=== PATIENT | male | born 1935 | race Hispanic/Latino ===

== ENCOUNTER → 2017-09-28 | Outpatient (CLI) | payer OTHER ==
[~2017-09-28] MED LIST: AEC81 PO; AMLO5TAB2 PO; ATOR40TA71 PO; FERR324T10 PO; FURO20TA6 PO; GEMF600T3 PO; INSU100I21 SQ; LOSA100T29 PO; METF10004 PO; METO25 PO; METO25TA3 PO; METO50TA18 PO; PANT40TA25 PO; TAMS0.4C32 PO; TRAM50TA4 PO
== END | disposition home or self-care (01) ==
LOC: SHCH 11:33
PROVIDERS: ATTEND Internal Medicine Cardiovascular Disease
DX: I51.7 Cardiomegaly (principal); R55 Syncope and collapse
CPT/HCPCS: 93306

== ENCOUNTER → 2017-10-02 | Outpatient (CLI) | payer OTHER ==
[~2017-10-02] MED LIST changes: +REGADENOSON 0.4 MG/5 ML PF SYG IVP SCH
== END | disposition home or self-care (01) ==
LOC: SHCH 08:20
PROVIDERS: ATTEND Internal Medicine Cardiovascular Disease
DX: R55 Syncope and collapse (principal)
CPT/HCPCS: 78452; 93017; 96374; A9500 ×2; J2785

== ENCOUNTER 2017-10-24 05:45 | Day surgery (SDC) | payer OTHER ==
[2017-10-20 08:53] VITALS: BP 155/65
[2017-10-20 09:01] LABS: BASOPHILS % (AUTO) 0.9 % (0.0-5.0); HEMATOCRIT 37.6 % (42-54); LYMPHOCYTES % (AUTO) 29.6 % (21.0-51.0); MEAN CORPUSCULAR HEMOGLOBIN 29.5 pg (27.0-33.0); MEAN CORPUSCULAR HGB CONC 33.6 g/dL (32.0-36.0); MEAN CORPUSCULAR VOLUME 87.9 fL (79-99); MONOCYTES % (AUTO) 6.8 % (3.0-13.0); NEUTROPHILS % (AUTO) 47.7 % (40.0-77.0); PLATELET COUNT (AUTO) 253 K/uL (130-400); RED BLOOD CELL COUNT(AUTO) 4.28 MIL/uL (4.50-6.20); RED CELL DISTRIBUTION WIDTH 14.5 % (11.0-15.5); WHITE BLOOD COUNT (AUTO) 8.5 K/uL (4.8-10.8)
[2017-10-20 09:02] LABS: APPEARANCE,URINE Clear (CLEAR); BILIRUBIN,URINE Negative (NEGATIVE); COLOR,URINE Yellow (YELLOW); GLUCOSE, URINE (UA) >=1000 mg/dL (NEGATIVE); KETONES,URINE Negative (NEGATIVE); LEUKOCYTE ESTERASE ,URINE Negative (NEGATIVE); NITRATE,URINE Negative (NEGATIVE); OCCULT BLOOD,URINE Negative (NEGATIVE); PROTEIN,URINE POS 1+ (NEGATIVE); UROBILINOGEN,URINE 0.2 mg/dL (0.2-1.0)
[2017-10-20 09:06] LABS: CREATININE 1.3 mg/dL (0.5-1.5); POTASSIUM 4.9 mmol/L (3.5-5.1)
[2017-10-20 09:18] LABS: INR 0.95 (0.85-1.15); PARTIAL THROMBOPLASTIN TIME 27.3 SEC (26.3-35.5)
[2017-10-20 09:51] LABS: BACTERIA,URINE Few /HPF (None Seen); RBC,URINE 0-1 /HPF (0-1); SQUAMOUS EPITHELIAL CELL,UR 0-2 /HPF (0-2); WBC,URINE None Seen /HPF (0-1)
[2017-10-24] VITALS (11 sets, daily range): BP systolic 142–171; BP diastolic 52–84
[~2017-10-24] VITALS: Ht 160 cm; Wt 74.2 kg
[~2017-10-24 05:45] MED LIST changes: +ACETAMINOPHEN 325 MG TAB PO PRN; -AEC81 PO; -AMLO5TAB2 PO; -FERR324T10 PO; -FURO20TA6 PO; -LOSA100T29 PO; -METO25 PO; -METO25TA3 PO; -REGADENOSON 0.4 MG/5 ML PF SYG IVP SCH; +SODIUM CHLORIDE 0.9% 500ML 500 ML IV SCH; -TAMS0.4C32 PO; -TRAM50TA4 PO
[2017-10-24] MEDS ORDERED: TAMS0.4C32 PO (06:42)
[2017-10-24] MEDS ORDERED: AMLO5TAB2 PO (06:43)
[2017-10-24] MEDS ORDERED: LOSA100T29 PO (06:46)
[2017-10-24] MEDS ORDERED: NITROGLYCERIN 5 MG/ML 10 ML VIAL IV ONE (07:13)
[2017-10-24] MEDS ORDERED: LIDOCAINE HCL 2% 20ML ONE (07:13)
[2017-10-24] MEDS ORDERED: SODIUM BICARB 50MEQ 50ML VIAL ONE (07:13)
[2017-10-24] MEDS ORDERED: HEPARIN SODIUM 1000UNIT/ML 10ML VIAL ONE (07:13)
[2017-10-24] MEDS ORDERED: IOPAMIDOL-370 100 ML VIAL IV ONE (07:13)
[2017-10-24] MEDS ORDERED: ISOVUE-370 50ML VIAL IV ONE (07:13)
[2017-10-24] MEDS ORDERED: SODIUM CHLORIDE 0.9% 1000ML 1,000 ML IV ONE (07:20)
[2017-10-24] MEDS ORDERED: ASPIRIN 81MG TAB.CHEW ONE (07:47)
[2017-10-24] MEDS ORDERED: METOPROLOL TARTRATE 1 MG/ML 5ML VIAL IV ONE (07:49)
[2017-10-24] MEDS ORDERED: SODIUM CHLORIDE 0.9% 1000ML 1,000 ML IV SCH (08:11)
[2017-10-24] MEDS ORDERED: DEXTROSE 50%-WATER 50 ML DISP.SYRIN IV PRN (08:15)
[2017-10-24] MEDS ORDERED: GLUCAGON 1MG KIT 1 MG ML IM PRN (08:15)
[2017-10-24] MEDS ORDERED: AEC81 PO (08:19)
[2017-10-24] MEDS ORDERED: METO25TA3 PO (08:19)
[2017-10-24] MEDS ORDERED: INSULIN HUMULIN R 100 UNIT/ML 3ML ONE (08:49)
[2017-10-24] MEDS ORDERED: INSULIN HUMULIN R 100 UNIT/ML 3ML SQ SCH (11:30)
[2017-11-13] MEDS ORDERED: FERR324T10 PO (15:42)
[2017-11-13] MEDS ORDERED: TRAM50TA4 PO (15:42)
[2017-11-13] MEDS ORDERED: METO25 PO (15:42)
[2017-11-13] MEDS ORDERED: FURO20TA6 PO (15:42)
== END 2017-10-24 12:25 | disposition home or self-care (01) ==
LOC: DAH 05:45
PROVIDERS: ATTEND Internal Medicine Cardiovascular Disease
DX: I25.118 Atherosclerotic heart disease of native coronary artery with other forms of angina pectoris (principal); E11.9 Type 2 diabetes mellitus without complications; E78.5 Hyperlipidemia, unspecified; K21.9 Gastro-esophageal reflux disease without esophagitis; Z79.4 Long term (current) use of insulin; Z79.84 Long term (current) use of oral hypoglycemic drugs; Z79.899 Other long term (current) drug therapy; Z98.890 Other specified postprocedural states; R07.9 Chest pain, unspecified
CPT/HCPCS: 36415; 71045; 80048; 81001; 82948 ×2; 85025; 85610; 85730; 93005; 93458; A4606; C1760; C1894; J1644; J1815; J3490 ×4; J7030; Q9967 ×2

== ENCOUNTER → 2018-02-01 | Outpatient (CLI) | payer OTHER ==
[~2018-02-01] MED LIST changes: -ACETAMINOPHEN 325 MG TAB PO PRN; +AEC81 PO; +FERR324T10 PO; +FURO20TA6 PO; -GEMF600T3 PO; -INSU100I21 SQ; +METF-446 PO; -METF10004 PO; +METO25 PO; -METO50TA18 PO; -PANT40TA25 PO; -SODIUM CHLORIDE 0.9% 500ML 500 ML IV SCH; +TAMS0.4C32 PO; +TRAM50TA4 PO
== END | disposition home or self-care (01) ==
LOC: RAH 10:50
PROVIDERS: ATTEND Nurse Practitioner Family
DX: R22.9 Localized swelling, mass and lump, unspecified (principal); I25.10 Atherosclerotic heart disease of native coronary artery without angina pectoris
CPT/HCPCS: 72192